=== PATIENT | female | born 1970 | race American Indian/Alaskan Native ===

== ENCOUNTER 2018-02-01 07:33 | Day surgery (SDC) | payer BC ==
[2018-01-31 10:17] VITALS: BMI 33.6
[2018-02-01 08:26] LABS: EOS # 0.2 K/uL (0.0-0.7); EOS % 3.6 % (0.0-4.0); HEMOGLOBIN 12.9 g/dL (11.0-16.0); LYMPH # 1.9 K/uL (1.0-4.3); LYMPH % 40.3 % (20.0-40.0); MEAN CELL VOLUME 90.4 fL (81.0-99.0); MEAN CORPUSCULAR HEMOGLOBIN 30.4 pg (27.0-31.0); MEAN CORPUSCULAR HGB CONC 33.6 g/dL (33.0-37.0); MONO # 0.5 K/uL (0.0-0.8); MONO % 11.8 % (0.0-10.0); NEUT % 43.3 % (50.0-75.0); RBC 4.25 Mil/uL (3.80-5.20); RED CELL DISTRIBUTION WIDTH 14.1 % (11.5-14.5); WHITE BLOOD COUNT 4.6 K/uL (4.8-10.8)
[2018-02-01 08:38] LABS: BLOOD UREA NITROGEN 8 mg/dL (7-17); CALCIUM 8.7 mg/dl (8.6-10.4); GFR NON-AFRICAN AMERICAN > 60
[2018-02-01] MEDS ORDERED: Lidocaine Hydrochloride 10 ML INJ ONE (09:52)
[2018-02-01] MEDS ORDERED: ceFAZolin IV 1 gm in Dextrose 1 GM/50 ML BAG IVPB ONE ×2 (09:52→10:09)
[2018-02-01] MEDS ORDERED: Bupivacaine 0.25% 20 ML INJ IJ ONE (09:53)
[2018-02-01] MEDS ORDERED: Midazolam 2 MG/2 ML VIAL ONE (09:58)
[2018-02-01] MEDS ORDERED: Propofol 10 mg/ml Inj (20 ML) ONE (09:59)
[2018-02-01] MEDS ORDERED: Lidocaine Hydrochloride 5 ML INJ ONE (10:00)
[2018-02-01] MEDS ORDERED: Metoprolol 1 mg/ml Inj ONE (10:06)
[2018-02-01] MEDS ORDERED: Lactated Ringer's 1,000 ML IV ONE ×2 (10:08→12:00)
[2018-02-01] MEDS ORDERED: Oxycodone/Acetaminophen 5/325 mg Tab PO PRN ×2 (10:58)
--- NOTE | 2018-02-01 11:18 | RAD ---
Date of service: 02/01/2018 PROCEDURE: Intraoperative Fluoroscopy. HISTORY: RT FOOT FOREIGN BODY FINDINGS: Fluoroscopic assistance was provided. Fluoroscopy time = 30.2 sec. Please refer to the operative report from WILLIAM Casiano.
[2018-02-01 11:57] VITALS: O2SAT 100
[2018-02-01 13:27] VITALS: RESP 16; TEMP 97.6
[2018-02-01 13:29] VITALS: BP 155/99; PULSE 80
--- NOTE | 2018-02-01 14:04 | RAD ---
Date of service: 02/01/2018 PROCEDURE: Right Foot Radiographs. HISTORY: right foot foreign body removal 1st MTPJ COMPARISON: Not available FINDINGS: BONES: Limited examination consists of only two views. No fracture. JOINTS: Normal. SOFT TISSUES: No radiopaque foreign body. Questionable subcutaneous gas along the medial base of the 1st proximal phalanx OTHER FINDINGS: None. IMPRESSION: No radiopaque foreign body identified.
--- NOTE | 2018-02-02 14:28 | PCM.SURG1 ---
Surgeon's Initial Post Op Note - Surgeon's Notes Surgeon: Dr. Maylin Del Angel DPM Row Boss Hoeing: Dr. Maureen Mc DPM PGY-2 Type of Anesthesia: IV Sedation, Local Anesthesia Administered By: Dr. Vang Pre-Operative Diagnosis: Right foot foreign body Operative Findings: See dictation. M: 4-0 monocryl. I: 20 cc of 1:1 mixture of 1% lidocaine plain:0.5% marcaine plain Post-Operative Diagnosis: Same Operation Performed: Attempt to excision of foreign body right foot Specimen/Specimens Removed: none Estimated Blood Loss: EBL {In ML}: 0 Blood Products Given: N/A Drains Used: No Drains Post-Op Condition: Good Date of Surgery/Procedure: 02/01/18 Time of Surgery/Procedure: 10:45
--- NOTE | 2018-02-04 00:43 | OP ---
PROCEDURE DATE: 02/01/2018 PREOPERATIVE DIAGNOSIS: Right foot foreign body. POSTOPERATIVE DIAGNOSIS: Right foot foreign body. PROCEDURE: Attempt to removal of foreign body, right foot. SURGEON: Maylin Del Angel DPM. UNDERWEAR HEMMER: Maureen Mc DPM, PGY2 TYPE OF ANESTHESIA: IV sedation with local. ANESTHESIOLOGIST: Dr. Vang. INDICATION: The patient is a 47-year-old female with the above diagnosis. The patient is being treated by Dr. Del Angel in her office on an outpatient basis where she exhausted conservative treatment. At this time, the patient seeks surgical intervention and requests the surgical procedure. All risks, benefits and possible complications of the proposed procedure have been explained to the patient at a greater length. The patient verbalizes understanding and wishes to proceed with the procedure. All questions were answered. No guarantees were given nor implied. Consent was signed. N.p.o. status was confirmed prior to bringing the patient into the operating room. DESCRIPTION OF THE PROCEDURE: The patient was brought into the operating room and was placed on the operating room table in supine position. A well-padded pneumatic ankle tourniquet was applied to the patient's right ankle. Once IV sedation was achieved, local injection of 1:1 mixture of 1% lidocaine plain to 0.5% Marcaine plain was injected via Saxena block type fashion to the patient's right foot. Once the local anesthesia was achieved, the foot was then prepped and draped in the usual sterile manner and the procedure began. PROCEDURE #1: Attempt to removal of foreign body: Attention was directed to the patient's medial aspect of the first MTPJ where a small incision was noted from the previous attempts for removal of foreign body in Dr. Del Angel's office. At this time, a mini C-arm was utilized and multiple views of AP, medial, oblique and lateral were taken to visualize the positioning of the foreign body into the patient's right foot. During the procedure, it was noted that no foreign body was present in the patient's right foot. To make certain and prevent any mistakes, again, multiple views of the right foot were taken using the mini C-arm, but no foreign bodies were visualized in the patient's right foot. At this time, to further investigate, a large C-arm was brought into the operating room and multiple images of the right foot were taken, which included AP, lateral, medial, oblique as well as live views were taken in attempt to find the foreign body into the patient's right foot. On all of the views taken, it was confirmed that no foreign body was visualized into the patient's right foot. At this time, utilizing a curved hemostat, an attempt to find a foreign body into the right foot was performed where the hemostat was inserted from the medial incision. No foreign body was felt in that area. Once again, to confirm the intraoperative diagnosis, multiple C-arm views were taken once again. While the procedure was being performed, the operating nurse checked the trash can that consisted the patient's old dressing and the whole trash can was checked for foreign body. No foreign material was once again found in the trash as well by the operating room nurse. A small magnet/needle finder was also ran on the operating room floor to make sure if some foreign body had fallen out but once again, no foreign body was found on the operating room floor as well. After multiple attempts, it was concluded that no foreign body is present in the patient's right foot at this time. Surgical site was then irrigated with copious amounts of sterile saline. Small incision was then well coapted using 4-0 Monocryl in simple suture type technique. Surgical site was then dressed with Betadine-soaked Adaptic, 4x4, Kerlix, and Coban. POSTOPERATIVE CONDITION: The patient tolerated the procedure and the anesthesia well and was escorted to the recovery room with vital signs stable and neurovascular status intact to the patient's right foot. All the postoperative instructions were provided to the patient prior to taking the patient to the operating room. The patient will remain weightbearing as tolerated in a surgical shoe to the patient's right foot. The patient will follow up with Dr. Del Angel in her office within one week. Prior to letting the patient go from the PACU, once the patient was stabilized, the patient was confirmed that no foreign body was found in the patient's right foot. Postoperative PACU x-rays were taken where it was also noted that no foreign body was found. Maureen Mc DPM Maylin Del Angel DPM [facility] # [id number]
== END 2018-02-01 12:53 | disposition home or self-care (01) ==
LOC: C.SDS 07:33
PROVIDERS: ATTEND Podiatrist Foot & Ankle Surgery
DX: S91.341A Puncture wound with foreign body, right foot, initial encounter (principal); W45.8XXA Other foreign body or object entering through skin, initial encounter
CPT/HCPCS: 10120; 36415; 73620; 76000; 80048; 84703; 85025; 93005; J0360; J0690; J2250; J2704; J3010; J7120